=== PATIENT | female | born 1945 | race Caucasian/White ===

== ENCOUNTER → 2019-11-04 | Outpatient (CLI) | payer MEDICARE | END | disposition home or self-care (01) | LOC: CFH 13:33 | PROVIDERS: ATTEND Internal Medicine | DX: Z12.31 Encounter for screening mammogram for malignant neoplasm of breast (principal); Z12.2 Encounter for screening for malignant neoplasm of respiratory organs; R63.4 Abnormal weight loss; I25.10 Atherosclerotic heart disease of native coronary artery without angina pectoris; J43.2 Centrilobular emphysema; J98.4 Other disorders of lung; R91.8 Other nonspecific abnormal finding of lung field; N60.01 Solitary cyst of right breast; Z87.891 Personal history of nicotine dependence | CPT/HCPCS: 76641; 77063; 77067; G0297 ==